=== PATIENT | female | born 1985 | race Caucasian/White ===

== ENCOUNTER 2018-07-12 09:13 | Emergency (ER) | payer OTHER ==
[2018-07-12 09:25] VITALS: BMI 29.9
[2018-07-12] MEDS ORDERED: Tdap Vaccine 0.5 ml Vial (10-64 yrs) IM ONE (09:36)
--- NOTE | 2018-07-12 09:39 | ED PDOC ---
HPI: Trauma/Fall - HPI Time Seen by Provider: 07/12/18 09:22 Chief Complaint (Nursing): Trauma Chief Complaint (Provider): Trauma History Per: Patient History/Exam Limitations: no limitations Onset/Duration Of Symptoms: Hrs Additional Complaint(s): 33 year old female with no past medical history who is presenting to the ED for evaluation of facial injury s/p fall just prior to arrival. Patient states that she tripped and fell forward on face and abdomen. She denies any loss of consciousness and complains of headache localized to injury near eyebrow. Patient is 34 weeks and denies any abdominal pain or vaginal bleeding. She admits that her tetanus is not up to date and offers no other medical complaints at this time. OBGYN: Dr. Karine Fierro Past Medical History Reviewed: Historical Data, Nursing Documentation, Vital Signs - Medical History PMH: No Chronic Diseases - Surgical History Surgical History: No Surg Hx - Family History Family History: States: Unknown Family Hx - Social History Current smoker - smoking cessation education provided: No Alcohol: None Drugs: Denies - Allergies Allergies/Adverse Reactions: Allergies Allergy/AdvReac Type Severity Reaction Status Date / Time No Known Allergies Allergy Verified 07/12/18 09:24 Review of Systems ROS Statement: Except As Marked, All Systems Reviewed And Found Negative Eyes: Positive for: Other (laceration to eye ) Gastrointestinal: Negative for: Abdominal Pain Genitourinary Female: Negative for: Vaginal Bleeding Neurological: Positive for: Headache Physical Exam - Reviewed Nursing Documentation Reviewed: Yes Vital Signs Reviewed: Yes - Physical Exam Appears: Positive for: Non-toxic, No Acute Distress Head Exam: Positive for: ATRAUMATIC, NORMAL INSPECTION, NORMOCEPHALIC Skin: Positive for: Normal Color, Warm, DRY Eye Exam: Positive for: Normal appearance, EOMI, PERRL, Other (2 cm laceration lateral and superior to left eyelid, abrasion to left eyebrow, no abnormal fluoroscein uptake). Negative for: Conjunctival injection Neck: Positive for: Normal, Painless ROM, Supple Cardiovascular/Chest: Positive for: Regular Rate, Rhythm. Negative for: Murmur Respiratory: Positive for: Normal Breath Sounds. Negative for: Respiratory Distress Gastrointestinal/Abdominal: Positive for: Normal Exam, Soft, Other (gravid abdomen ). Negative for: Tenderness, Distended, Guarding, Rebound Back: Positive for: Normal Inspection. Negative for: L CVA Tenderness, R CVA Tenderness Extremity: Positive for: Normal ROM. Negative for: Deformity, Swelling Neurological/Psych: Positive for: Awake, Alert, Normal Tone, Oriented. Negative for: Motor/Sensory Deficits - Laboratory Results Result Diagrams: 07/12/18 12:07 Medical Decision Making Medical Decision Making: Time: 9:30 Plan: --Adacel 0.5 ml IM 9:[address] Villeda in plastics who states he will repair the laceration. Discussed with patient that she will go to L&D for monitoring and then will return to the Ed for laceration repair. Patient agrees to plan. 15:40 Pt back from L&D, cleared from their standpoint. Dr. Villeda in ED to suture laceration. Scribe Attestation: Documented by Ann-Marie Sood, acting as a scribe for Nicolle Cedeño MD. Provider Scribe Attestation: All medical record entries made by the Scribe were at my direction and personally dictated by me. I have reviewed the chart and agree that the record accurately reflects my personal performance of the history, physical exam, medical decision making, and the department course for this patient. I have also personally directed, reviewed, and agree with the discharge instructions and disposition. Disposition - Clinical Impression Clinical Impression: Facial laceration, Abdominal trauma - Disposition Disposition: Routine/Home Disposition Time: 16:09 Condition: STABLE Instructions: Laceration Repair, Rho(D) Immune Globulin, Wound Care Forms: Heyday (Greek)
--- NOTE | 2018-07-12 10:59 | CP.PCM.CON ---
History of Present Illness - History of Present Illness History of Present Illness: Plastic Surgery Consult Note for Dr. Villeda Reason for consult: Facial laceration 33 F who is 34 weeks who presents to [facility] for s/p fall. Patient was seen and evaluated in L&D. Patient states that around 8 am she was walking to work in [place] when she slipped because it was raining and fell into a puddle hitting her head. She denies LOC and remembers the entire fall. Also denies dizziness/lightheadedness, vertigo, vision changes, weakness, numbness/tingling. Patient reports headache and facial pain over left eye where laceration is located. Patient has no other complaints at this time. She was sent to L&D for 4 hours of heart monitoring. PMH: denies PSH: denies ALL: NKDA Review of Systems - Review of Systems All systems: reviewed and no additional remarkable complaints except (as per HPI) Past Patient History - Past Social History Alcohol: None Drugs: Denies - PSYCHIATRIC Hx Substance Use: No - SURGICAL HISTORY Hx Surgeries: Yes Other/Comment: knee surgery - ANESTHESIA Hx Anesthesia: Yes Hx Anesthesia Reactions: No Meds Allergies/Adverse Reactions: Allergies Allergy/AdvReac Type Severity Reaction Status Date / Time No Known Allergies Allergy Verified 07/12/18 09:24 Physical Exam - Constitutional Appears: No Acute Distress - Head Exam Head Exam: NORMOCEPHALIC Additional comments: two lacerations each ~ 2cm in length over left eyebrow - Eye Exam Eye Exam: EOMI, Normal appearance Pupil Exam: PERRL - ENT Exam ENT Exam: Mucous Membranes Moist - Neck Exam Neck exam: Positive for: Full Rom - Respiratory Exam Respiratory Exam: NORMAL BREATHING PATTERN - Cardiovascular Exam Cardiovascular Exam: REGULAR RHYTHM - GI/Abdominal Exam GI & Abdominal Exam: Normal Bowel Sounds, Soft. absent: Tenderness Additional comments: gravud uterus appropriate for gestational age - Extremities Exam Extremities exam: Positive for: normal capillary refill, pedal pulses present - Back Exam Back exam: absent: CVA tenderness (L), CVA tenderness (R) - Neurological Exam Neurological exam: Alert, CN II-XII Intact, Normal Gait, Oriented x3, Reflexes Normal Additional comments: no motor or sensory deficits noted - Psychiatric Exam Psychiatric exam: Normal Affect, Normal Mood - Skin Skin Exam: Dry, Warm Additional comments: two lacerations over left eyebrow Results - Vital Signs Recent Vital Signs: Last Vital Signs Temp 97.7 F 07/12/18 09:51 Pulse 78 07/12/18 09:51 Resp 19 07/12/18 09:51 BP 130/78 07/12/18 09:51 Pulse Ox 98 07/12/18 09:51 - Labs Result Diagrams: 07/12/18 12:07 Assessment & Plan - Assessment and Plan (Free Text) Assessment: 33 F who is 34 weeks who presents with two facial lacerations Plan: -will repair at bedside -pain control - monitoring as per L&D -Discussed with Dr. Ronal Madrigal PGY2 - Date & Time Date: 07/12/18 Time: 10:30
[2018-07-12 13:03] LABS: BASO % 0.1 % (0.0-2.0); EOS % 0.1 % (0.0-4.0); HEMOGLOBIN 12.4 g/dL (12.0-16.0); LYMPH # 1.5 K/uL (1.0-4.3); LYMPH % 8.9 % (20.0-40.0); MEAN CELL VOLUME 86.7 fl (81.0-99.0); MEAN CORPUSCULAR HEMOGLOBIN 29.3 pg (27.0-31.0); MEAN CORPUSCULAR HGB CONC 33.8 g/dL (33.0-37.0); MEAN PLATELET VOLUME 10.7 fl (7.2-11.7); MONO # 0.9 K/uL (0.0-0.8); MONO % 5.2 % (0.0-10.0); NEUT # 14.4 K/uL (1.8-7.0); NEUT % 85.7 % (50.0-75.0); PLATELET COUNT 207 K/uL (130-400); RBC 4.22 Mil/uL (3.80-5.20); RED CELL DISTRIBUTION WIDTH 13.7 % (11.5-14.5); WHITE BLOOD COUNT 16.8 K/uL (4.8-10.8)
[2018-07-12] MEDS ORDERED: Povidone Iodine Oint 10% Foilpak UD ONE (15:07)
[2018-07-12 15:29] LABS: BANDS 6 % (0-2); LYMPHOCYTE 17 % (20-50); MONOCYTE 9 % (0-10); NEUTROPHIL 68 % (42-75); TOTAL CELLS COUNTED 100
[2018-07-12 15:30] LABS: ANISOCYTOSIS SLIGHT; HYPOCHROMIC SLIGHT; PLATELET ESTIMATE NORMAL (NORMAL)
[2018-07-12] MEDS ORDERED: Fluorescein 1 mg Ophthalmic Strip OS STA (15:57)
[2018-07-12] MEDS ORDERED: Fluorescein 1 mg Ophthalmic Strip ONE (15:59)
[2018-07-12 16:30] VITALS: RESP 18
[2018-07-12 17:02] VITALS: TEMP 97.9; O2SAT 97
--- NOTE | 2018-07-12 17:59 | OBHP ---
Datetime: 07/12/2018 11:01 IP Adm Impression: , intrauterine IP Chief Complaint Other: Maternal fall, abdominal trauma IP Admit Plan: Observation/Evaluation Admit Comment, IP Provider: HPI: Sydni is a 33 year old G1 at 34.1 who presents to [facility] after a fa ll earlier this morning. [place] and slipped on the s shant walk. She fell onto her abdomen and L side of her face sustaining 2 facial lacerations. Denies an y current contractions, mild lower abdominal aching. No vaginal bleeding or LOF. She is feeling the b lashell move. GENEVA: 08/22/18 Problems Denies History G1: current PMH Reports multiple previous concussions PSH Denies Medications PNV Allergies NKDA Social No tobacco, alcohol or drug use during the PHYSICAL EXAM See exam section labs: Unavailable, patient reports that she is Rh negative ASSESSMENT/PLAN: 33 year old G1 here for monitoring after a fall from standing height - Patient will need at least 4 hours of monitoring due to her abdominal trauma - Although low risk injury it is reasonable to order KB testing - We will empirically give the patient Rhogam due to her Rh neg status - Patient will also receive Tdap Plan discussed with attending, Dr. Maravilla. Addendum by Dr. Maravilla: I have evaluated the patient independently and I agree with the above IP Fetus A Comments: Reactive NST FHR - Baseline A Provider: 130 Comments, ACOG Physical Exam: Patient appears alert and oriented, no acute distress HEENT: there are 2 lacerations along the L eyebrow and eyelid, approximately 1.5cm each, minimal s ubcutaneous tissue visible Nonlabored respirations Regular rate Abdomen is soft, nontender Gestation - Est Wks by US: 34.1 Vital Signs Provider: Reviewed; Within Normal Limits NICHD Variability Prov Fetus A: Moderate 6-25bpm NICHD Accel Fetus A IP Provider: [id number]
[2018-07-12 19:34] VITALS: BP 126/80; PULSE 92
--- NOTE | 2018-07-16 23:15 | CON ---
DATE: 07/12/2018 EMERGENCY ROOM CONSULTATION SURGEON: Myah Villeda MD HISTORY OF PRESENT ILLNESS: This is a 33-year-old female who is 34 weeks who tripped and fell on her right sidewalk. She presented to the emergency room with two lacerations to her face that were complex to her left eyebrow and left upper eyelid. I was consulted by the ER staff for this complex wounds and I came in as the plastic surgeon lead person. The patient was also monitored for 4 hours with a monitor to evaluate the fetus. PHYSICAL EXAMINATION: HEENT: The patient's left eyebrow had a 3 cm laceration involving the orbicularis oculi muscle. It was within the substance of the eyebrow. On the patient's left upper eyelid, there was a 2.7 cm laceration with irregular edges that proximally involved the orbicularis karli muscle as well. Her superior orbital bone is only minimally tender. The extraocular movement exam was intact. There was no enophthalmos. No double vision. There were no signs of any facial fractures. The other facial bones were nontender. PLAN: I explained to the patient and her , there would be scarring and my job as a plastic surgeon was to minimize it. We also talked about the possibility of alopecia in the left eyebrow and we also talked about the patient's preference to avoid antibiotics since she is , and I told her that we can do that after I irrigate the wound, but if there are any signs of infection to let me know sooner rather than later, and then we can initiate at that point to which I agreed. I said there would be scarring and my job as a plastic surgeon was to minimize it. I will dictate a separate operative report. Myah Villeda MD
--- NOTE | 2018-07-16 23:41 | OP ---
PROCEDURE DATE: 07/12/2018 SURGEON: Myah Villeda MD PREOPERATIVE DIAGNOSES: As follows: 1. A 3-cm left eyebrow laceration. 2. A 2.7-cm left upper eyelid laceration. POSTOPERATIVE DIAGNOSES: 1. A 3-cm left eyebrow laceration. 2. A 2.7-cm left upper eyelid laceration. PROCEDURES PERFORMED: As follows: 1. Complex repair of 3-cm left eyebrow laceration. 2. Complex repair of 2.7-cm left upper eyelid laceration. ANESTHESIA: Regional: Left supraorbital nerve block. INDICATIONS FOR PROCEDURE: As follows: Please refer my separately dictated ER consultation for history and physical. DESCRIPTION OF PROCEDURE: As follows: Lidocaine 1% with 1:100,000 epinephrine was used in the left supraorbital nerve block as well as in left upper eyelid. After allowing sufficient time for the anesthetic to take effect, the wound was thoroughly irrigated with normal saline. Any retained debris was manually removed. There were some small pieces of gravel at the medial canthus of both eyes which were removed. The patient complained of floater which she had before in the left eye. I deferred to the emergency room staff for a fluorescein test and to evaluate her eye. I explained to the patient that there may be some foreign bodies or gravel on open wounds. I will irrigate them but warned them that if I in the emergency room, it may cause damage to nerves and muscles and it would not benefit her but warned that there is a possibility there could be a foreign body and that could become symptomatic and shows up on a future radiographic study, may need to be addressed at that time. They understood this and wished to proceed. Lidocaine 1% with 1:100,000 epinephrine was used locally in the left upper eyelid and left supraorbital nerve block. The wound was thoroughly irrigated with normal saline, and any retained debris was manually removed. I started the operation in the left eyebrow. I repaired the orbicularis oculi muscle in an interrupted fashion with 5-0 Monocryl sutures and approximated the subcutaneous tissue and deep dermis in an interrupted fashion with 5-0 Monocryl sutures. I did not trim in near the eyebrows. I then closed the skin with 5-0 fast absorbing suture in a running manner. I then addressed the left upper eyelid 2.7 cm laceration. I had to debride the irregular skin edges, undermined it to take the tension of the wound. I used a 5-0 Monocryl to line up and approximate the orbicularis oculi muscle and the deep dermis in an interrupted fashion. I then closed the 2.7-cm epidermis with a running 6-0 Prolene suture. After doing this, the wound edges were nicely aligned. The patient tolerated the procedure well. Her eye was examined by the emergency room staff. Postop wound care, limitation of physical activities, and the fact there will be a scar, the prognosis of which is unknown were discussed with the patient, and signs of infection to look out for the possible need for antibiotics if there is any infection she developed was discussed with the patient and her , and all their questions were answered. Myah Villeda MD
== END 2018-07-12 17:00 | disposition home or self-care (01) ==
LOC: H.EROB2 09:13 → H.ER 09:13 → H.EROB2 10:02 → H.ER 17:00
DX: O26.93 Pregnancy related conditions, unspecified, third trimester (principal); Z04.3 Encounter for examination and observation following other accident; R10.2 Pelvic and perineal pain; S01.112A Laceration without foreign body of left eyelid and periocular area, initial encounter; Z3A.34 34 weeks gestation of pregnancy; Z23 Encounter for immunization
CPT/HCPCS: 28190; 85025; 86849; 86850; 86870; 86900; 90471; 90715; 99284; J2792